=== PATIENT | female | born 1990 | race African-American/Black ===

== ENCOUNTER 2016-08-28 11:21 | Emergency (ER) | payer OTHER ==
[~2016-08-28] VITALS: Ht 170.2 cm; Wt 98.0 kg
[~2016-08-28 11:21] MED LIST: AUGMENTIN500 MG PO; MOTRIN800 MG PO; NAPROSYN500 MG PO; NORCO 7.5/321 TABLET PO; PROMETHAZINE HC25 M1 PO; TRAMADOL HCL50 MG PO; VALTREX1000 MG PO
[2016-08-28 12:59] LABS: EOSINOPHIL (%) 1.4 % (0-5); EOSINOPHIL COUNT 0.1 K/uL (0-0.3); HEMATOCRIT 39.3 % (36.0-46.0); IMMATURE GRANULOCYTE (%) 0.3 % (0.0-0.7); INSTRUMENT ABS NEUTROPHIL CT 4.2 K/uL; LYMPHOCYTE COUNT 2.4 K/uL (1.0-2.8); MCH 25.9 PG (29.0-34.0); MCHC 33.3 G/DL (30.0-36.0); MCV 77.8 FL (83-99); MEAN PLAT.VOLUME 9.8 uM^3 (9.5-12.4); MONOCYTE COUNT 0.6 K/uL (0-0.8); NEUTROPHIL (%) 57.4 % (45-76); NEUTROPHIL COUNT 4.2 K/uL (1.8-6.4); PLATELET COUNT 320 K/uL (156-360); RBC DIS.WIDTH-CV 13.4 % (11.8-14.6); RBC DIS.WIDTH-SD 37.6 % (39-53); RED BLOOD COUNT 5.05 M/uL (3.80-5.20); WHITE BLOOD COUNT 7.3 K/uL (4.1-10.2)
[2016-08-28 13:07] LABS: CHLORIDE 105 mEq/L (99-109); POTASSIUM 3.6 mEq/L (3.7-5.4); SODIUM 137 mEq/L (136-147)
[2016-08-28 13:09] LABS: GLUCOSE 83 mg/dL (70-99)
[2016-08-28 13:10] LABS: ANION GAP 11 MEQ/L (2-14)
[2016-08-28 13:13] LABS: GFR ESTIMATE (CALCULATED) > 59 mL/min/
[2016-08-28 13:14] LABS: UREA NITROGEN (BUN) 5 mg/dL (9-23)
[2016-08-28 13:28] LABS: ADD MIUA? YES; BILIRUBIN NEGATIVE; BLOOD NEGATIVE; COLOR YELLOW ((YELLOW)); GLUCOSE (STRIP) NEGATIVE; KETONES 20; LEUKOCYTES NEGATIVE; NITRITE NEGATIVE; PROTEIN (STRIP) 100; SPECIFIC GRAVITY 1.027 (1.000-1.030)
[2016-08-28 13:39] LABS: QUANTITATIVE HCG 117687.8 MIU/ML
[2016-08-28 13:39] LABS: BACTERIA NONE SEEN /HPF; EPITHELIAL CELLS 2+ /HPF; MUCUS 3+ /LPF; RED BLOOD CELLS 0-5 /HPF (0-5); URIC ACID CRYSTALS 1+ /HPF; WHITE BLOOD CELLS 0-5 /HPF (0-5)
[2016-08-28] MEDS ORDERED: ZOFRAN ODT4 MG PO (14:37)
[2016-08-28 14:54] VITALS: BP 122/69
== END 2016-08-28 14:54 | disposition home or self-care (01) ==
LOC: EME 11:21
PROVIDERS: Emergency Medicine
DX: O21.0 Mild hyperemesis gravidarum (principal); Z3A.09 9 weeks gestation of pregnancy
CPT/HCPCS: 80048; 81003; 84702; 85025; 99281; 99285; J2405; J7030

== ENCOUNTER 2017-01-14 12:03 | Outpatient (CLI) | payer OTHER ==
[~2017-01-14 12:03] MED LIST changes: +ZOFRAN ODT4 MG PO
[2017-01-14 12:15] VITALS: BP 111/56
[2017-01-14 13:19] LABS: ADD MIUA? NO; BILIRUBIN NEGATIVE; BLOOD NEGATIVE; COLOR STRAW ((YELLOW)); GLUCOSE (STRIP) NEGATIVE; KETONES NEGATIVE; LEUKOCYTES NEGATIVE; NITRITE NEGATIVE; PROTEIN (STRIP) NEGATIVE; SPECIFIC GRAVITY 1.006 (1.000-1.030); UCUL ADDED? NO; UROBILINOGEN 0.2 MG/DL (0.2-1.0)
== END 2017-01-14 14:15 | disposition home or self-care (01) ==
LOC: LDRP-OP 12:03 → 2WEST 12:04 → LDRP-OP 05-03 08:47
PROVIDERS: Advanced Practice Midwife
DX: O26.892 Other specified pregnancy related conditions, second trimester (principal); R11.2 Nausea with vomiting, unspecified; E86.0 Dehydration; O09.292 Supervision of pregnancy with other poor reproductive or obstetric history, second trimester; Z3A.28 28 weeks gestation of pregnancy
CPT/HCPCS: 59025; 81003; 82731; G0378

== ENCOUNTER 2017-01-17 17:19 | Emergency (ER) | payer OTHER ==
[~2017-01-17] VITALS: Ht 172.7 cm; Wt 100.0 kg
[2017-01-17] MEDS ORDERED: PROMETHAZINE HC25 M1 PO (18:10)
[2017-01-17 18:31] LABS: HEMATOCRIT 29.6 % (36.0-46.0); MCH 26.1 PG (29.0-34.0); MCHC 33.4 G/DL (30.0-36.0); MCV 78.1 FL (83-99); MEAN PLAT.VOLUME 9.8 uM^3 (9.5-12.4); PLATELET COUNT 252 K/uL (156-360); RBC DIS.WIDTH-CV 12.6 % (11.8-14.6); RBC DIS.WIDTH-SD 35.4 % (39-53); RED BLOOD COUNT 3.79 M/uL (3.80-5.20); WHITE BLOOD COUNT 9.2 K/uL (4.1-10.2)
[2017-01-17 18:43] LABS: CHLORIDE 106 mEq/L (99-109); POTASSIUM 3.4 mEq/L (3.7-5.4); SODIUM 138 mEq/L (136-147)
[2017-01-17 18:45] LABS: GLUCOSE 84 mg/dL (70-99)
[2017-01-17 18:46] LABS: ANION GAP 12 MEQ/L (2-14)
[2017-01-17 18:48] LABS: GFR ESTIMATE (CALCULATED) > 59 mL/min/
[2017-01-17 18:49] LABS: UREA NITROGEN (BUN) 5 mg/dL (9-23)
[2017-01-17 20:37] VITALS: BP 122/86
== END 2017-01-17 20:45 | disposition home or self-care (01) ==
LOC: EME → EDBD 17:19 → EME 20:45
PROVIDERS: Emergency Medicine
DX: O99.283 Endocrine, nutritional and metabolic diseases complicating pregnancy, third trimester (principal); E86.0 Dehydration; Z3A.29 29 weeks gestation of pregnancy
CPT/HCPCS: 80048; 85027; 93005; 99281; 99284; J7030

== ENCOUNTER 2017-03-31 19:15 | Inpatient (IN) | payer OTHER ==
[~2017-03-31] VITALS: Ht 172.7 cm; Wt 102.9 kg
[2017-03-31 19:38] VITALS: BP 138/90
[2017-03-31 19:57] LABS: EOSINOPHIL COUNT 0.1 K/uL (0-0.3); HEMATOCRIT 34.6 % (36.0-46.0); IMMATURE GRANULOCYTE (%) 0.4 % (0.0-0.7); INSTRUMENT ABS NEUTROPHIL CT 4.9 K/uL; LYMPHOCYTE COUNT 2.3 K/uL (1.0-2.8); MCH 24.9 PG (29.0-34.0); MCHC 32.7 G/DL (30.0-36.0); MCV 76.2 FL (83-99); MEAN PLAT.VOLUME 10.2 uM^3 (9.5-12.4); MONOCYTE (%) 7.2 % (3-12); MONOCYTE COUNT 0.6 K/uL (0-0.8); NEUTROPHIL (%) 62.3 % (45-76); NEUTROPHIL COUNT 4.9 K/uL (1.8-6.4); PLATELET COUNT 309 K/uL (156-360); RBC DIS.WIDTH-CV 13.6 % (11.8-14.6); RBC DIS.WIDTH-SD 37.2 % (39-53); RED BLOOD COUNT 4.54 M/uL (3.80-5.20); WHITE BLOOD COUNT 7.9 K/uL (4.1-10.2)
[2017-03-31 21:34] VITALS: BP 106/73
[2017-03-31] MEDS ORDERED: IBUPROFEN800 MG PO (21:39)
[2017-03-31 21:45] VITALS: BP 112/71
[2017-03-31 21:58] VITALS: BP 115/62
[2017-03-31 22:16] VITALS: BP 128/58
[2017-03-31 23:25] VITALS: BP 122/78
[2017-04-01 00:08] VITALS: BP 128/77
[2017-04-01 07:44] VITALS: BP 140/82
[2017-04-01 14:48] VITALS: BP 129/84
[2017-04-01 23:00] VITALS: BP 139/79
[2017-04-02 07:09] VITALS: BP 120/70
[2017-04-02 14:42] VITALS: BP 134/83
== END 2017-04-02 21:10 | disposition home or self-care (01) | DRG 775 ==
LOC: LDRP-OP → 2WEST 19:17 → LDRP-OP 05-03 14:38
PROVIDERS: Nurse Practitioner
DX: O99.824 Streptococcus B carrier state complicating childbirth (principal); O99.214 Obesity complicating childbirth; O99.02 Anemia complicating childbirth; E66.9 Obesity, unspecified; Z68.34 Body mass index [BMI] 34.0-34.9, adult; Z3A.39 39 weeks gestation of pregnancy; Z37.0 Single live birth; D57.40 Sickle-cell thalassemia without crisis
CPT/HCPCS: 85025; J2540; J7120